=== PATIENT | female | born 1995 | race Two or more races ===

== ENCOUNTER 2020-02-01 22:24 | Emergency (ER) | payer SELFPAY ==
[~2020-02-01] VITALS: Ht 160 cm; Wt 81.6 kg
[2020-02-01 23:16] VITALS: BP 119/77
[2020-02-01 23:37] LABS: Urine Bacteria FEW /hpf (None Seen); Urine Blood Negative /uL (Negative); Urine WBC 49 /hpf (0 - 5)
== END 2020-02-02 02:41 | disposition home or self-care (01) ==
LOC: ER 22:33
DX: R39.15 Urgency of urination (principal); R35.0 Frequency of micturition; N39.0 Urinary tract infection, site not specified; R30.0 Dysuria
CPT/HCPCS: 81001; 99283; J7030

== ENCOUNTER 2024-03-12 12:48 | Emergency (ER) | payer MEDICAID, OTHER ==
[~2024-03-12] VITALS: Ht 160 cm; Wt 103.9 kg
[2024-03-12 13:44] VITALS: BP 110/61; PULSE 100; RESP 16; TEMP 98.4; O2SAT 97
[2024-03-12] MEDS ORDERED: TOB03OS OP (13:57)
--- NOTE | 2024-03-12 14:03 | ED.PDOC ---
Eye-HPI HPI Comments A 28 YEAR OLD FEMALE PRESENTS TO THE ED WITH COMPLAINT OF LEFT EYE IRRITATION AND REDNESS. PATIENT STATES SHE HAS BEEN EXPERIENCING LEFT EYE IRRITATION AND ITCHING FOR THE PAST 3 DAYS AND NOTES HER LEFT EYE BECAME RED TODAY WHEN SHE WOKE UP PROMPTING HER TO COME TO THE ED TODAY FOR EVALUATION. PATIENT DENIES VISION CHANGES, FEVER, CHILLS, SHORTNESS OF BREATH, CHEST PAIN, ABDOMINAL PAIN, NAUSEA, VOMITING, HEADACHE, OR OTHER COMPLAINTS. NO OTHER SYMPTOMS OR MODIFYING FACTORS AT THIS TIME. PATIENT IS ALERT, ORIENTED X 4, AND HAS STEADY GAIT. Chief Complaint: Eye Problem Time Seen by MD: 13:07 Primary Care Provider: COLLIN Andino Notes: Nurses Notes, Medications, Allergies Allergies: Coded Allergies: NO KNOWN ALLERGIES (Unverified , 06/01/14) Home Meds Active Scripts Tobramycin Sulfate (Tobrex) [address], 2 DROP OP QID, #5 ML Prov:HALEY SHEETS 03/12/24 Information Source: Patient Mode of Arrival: Ambulatory Timing: Days Duration: Since onset, Days Prehospital treatment: None Quality: Pain, Red Eye Location: Left Lids: Normal Conjunctiva: Normal Cornea: Normal Pupils: Normal EOM: Normal Fundus: Normal Slit lamp exam: Normal Anterior chamber: Normal Mouth: Normal ENT Ear Exam: Normal, Normal, Normal Nose: Normal Sinuses: Normal Oropharynx: Normal Onset: Spontaneous Throat Exposed to: None History of: None Last Tetanus: Unknown Modifying factors: Nothing Associated signs and symptoms: Tearing Past Medical History PAST MEDICAL HISTORY: Denies Surgical History: Denies all surgeries ANIMAL SCIENTIST History: No Pertinent ANIMAL SCIENTIST History Family History Family History: Reviewed,noncontributory to illness, No family hx of Cancer, No family hx of DM, No family hx of Heart halima, No family hx of HTN, No family hx ofKidney halima, No family hx of Liver halima, No family hx of Lung halima, No family hx of Stroke Social History Smoker: Non-Smoker Alcohol: Denies ETOH Use Drugs: Denies Drug Use Lives In: Home Constitutional: denies: chills, diaphoresis, fatigue, fever, malaise, sweats, weakness, others EENTM: reports: eye pain (LEFT EYE IRRITATION), eye redness (LEFT EYE REDNESS); denies: blurred vision, double vision, ear bleeding, ear discharge, ear drainage, ear pain, ear ringing, hearing loss, mouth pain, mouth swelling, nasal discharge, nose bleeding, nose congestion, nose pain, photophobia, tearing, throat pain, throat swelling, voice changes, others Respiratory: denies: cough, hemoptysis, orthopnea, SOB at rest, shortness of breath, SOB with excertion, stridor, wheezing, others Cardiovascular: denies: chest pain, dizzy spells, diaphoresis, Dyspnea on exertion, edema, irregular heart beat, left arm pain, lightheadedness, palpitations, PND, syncope, others Gastrointestinal: denies: abdomen distended, abdominal pain, blood streaked bowels, constipated, diarrhea, dysphagia, difficulty swallowing, hematemesis, melena, nausea, poor appetite, poor fluid intake, rectal bleeding, rectal pain, vomiting, others Genitourinary: denies: abnormal vagina bleeding, burning, dyspareunia, dysuria, flank pain, frequency, hematuria, incontinence, pain, , vagina discharge, urgency, others Neurological: denies: dizziness, fainting, headache, left sided numbness, left sided weakness, numbness, paresthesia, pre-existing deficit, right sided numbness, right sided weakness, seizure, speech problems, tingling, tremors, w eakness, others Musculoskeletal: denies: back pain, gout, joint pain, joint swelling, muscle pain, muscle stiffness, neck pain, others Integumetry: denies: bruises, change in color, change in hair/nails, dryness, laceration, lesions, lumps, rash, wounds, others Allergic/Immunocompromised: denies: Difficulty Healing, Frequent Infections, Hives, Itching, others Hematologic/Lymphatic: denies: anemia, blood clots, easy bleeding, easy bruising, swollen glands, others Endocrine: denies: excessive hunger, excessive sweating, excessive thirst, excessive urination, flushing, intolerance to cold, intolerance to heat, unexplained weight gain, unexplained weight loss, others Psychiatric: denies: anxiety, bipolar disorder, depression, hopeless, panic disorder, schizophrenia, sleepless, suicidal, others All Other Systems: Reviewed and Negative Physical Exam General Appearance: No Apparent Distress, Normal HEENT: Normal ENT Inspection, PERRL/EOMI, Pharynx Normal, TMs Normal, Other (MILD LEFT SUBCONJUNCTIVA HEMORRHAGE WITH MILD DISCHARGE. A TINY STYE OF LEFT UPPER INTENAL UPPER EYELID. ) Neck: Full Range of Motion, Non-Tender, Normal, Normal Inspection Respiratory: Chest Non-Tender, Lungs Clear, No Accessory Muscle Use, No Respiratory Distress, Normal Breath Sounds Cardiovascular: No Edema, No JVD, No Murmur, No Gallop, Normal Peripheral Pulses, Regular Rate/Rhythm Breast Exam: Deferred Gastrointestinal: No Organomegaly, Non Tender, No Pulsatile Mass, Normal Bowel Sounds, Soft Genitalia: Deferred Pelvic: Deferred Rectal: Deferred Extremities: No calf tenderness, Normal capillary refill, Normal inspection, Normal range of motion, Non-tender, No pedal edema Musculoskeletal : Apperance: Normal Neurologic: Alert, outbound telemarketer II-XII nml as Tested, No Motor Deficits, Normal Affect, Normal Mood, No Sensory Deficits Cerebellar Function: Normal Reflexes: Normal Skin: Dry, Normal Color, Warm Peripheral Pulses: 2+ carotid (R), 2+ carotid (L) Lymphatic: No Adenopathy Was a procedure done? Was a procedure done?: No EENT DIFF Eye: Conjunctivitis, Allergic, Bacterial, Viral, Hordeolum (stye) Ear: N/A Nose: N/A Mouth: N/A Sore Throat: N/A X-Ray, Labs, Meds, VS Vital Signs Date Time Temp Pulse Resp B/P (MAP) Pulse Ox O2 Delivery O2 Flow Rate FiO2 03/12/24 13:44 98.4 100 16 110/61 (77) 97 98.4 03/12/24 13:44 100 16 97 Room Air 03/12/24 13:23 98.4 100 16 110/61 (77) 97 Time of 1ST Reevaluation: 14:10 Reevaluation 1ST: Improved Patient Education/Counseling: Diagnosis, Treatment, Need For Follow Up Family Education/Counseling: Diagnosis, Treatment, Need For Follow Up Medical Screening: No EMC Exist At This Time Departure 1 Departure Time of Disposition: 14:20 Impression: Primary Impression: Acute conjunctivitis of left eye Qualified Codes: H10.32 - Unspecified acute conjunctivitis, left eye Disposition: HOME / SELF CARE / HOMELESS Condition: Stable Additional Instructions: FOLLOW-UP WITH PCP IN 1 TO 2 DAYS. TAKE MEDICATIONS PRESCRIBED. RETURN TO ED FOR ANY NEW OR WORSENING SYMPTOMS. e-Prescriptions Tobramycin Sulfate (Tobrex) [address] 2 DROP OP QID, #5 ML Prov: HALEY SHEETS 03/12/24 Discharged With: Self Critical Care Note Critical Care Time?: No Stability Stability form required: No I personally scribed for HALEY SHEETS ([email or web address]) on 03/12/24 at 14:03. Electronically submitted by Jeevan Orellana ([email or web address]). HALEY SHEETS Mar 12, 2024 14:03
== END 2024-03-12 14:07 | disposition home or self-care (01) ==
LOC: ER 12:48
DX: H10.32 Unspecified acute conjunctivitis, left eye (principal)